=== PATIENT | female | born 1965 | race Caucasian/White ===

== ENCOUNTER → 2018-03-31 14:53 | Outpatient (CLI) | payer OTHER | END | disposition home or self-care (01) | LOC: D.MRI 14:53 | DX: M54.2 Cervicalgia (principal) ==

== ENCOUNTER 2018-09-15 07:30 | Day surgery (SDC) | payer OTHER ==
[2018-09-13 15:11] LABS: HEMOGLOBIN 12.8 g/dL (12-16); MCH 32.2 pg (26.0-34.0); MCHC 33.7 g/dL (31.0-37.0); MCV 95.5 fL (80.0-100.0); MEAN PLATELET VOLUME 10.3 fL (7.4-10.4); RBC 3.98 10x6/uL (4.00-5.40); RDW 12.9 % (11.5-14.5); WBC 4.8 10x3/uL (4.8-10.8)
[~2018-09-15] VITALS: Ht 157.5 cm; Wt 54.5 kg
--- NOTE | ~2018-09-15 | OP ---
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 PROCEDURE: Anterior cervical discectomy with removal of osteophytes and disc herniation at C5-C6, C5-C6 arthroplasty with Mobi-C artificial cervical disc. DESCRIPTION AND TECHNIQUE: After induction of general endotracheal anesthesia, the patient was positioned supine on the operating table with the cervical spine in a neutral position. After sterile prep and drape, the C5-C6 interspace was identified with fluoroscopic x-ray and a [place] dissector. Infiltration with 1:100,000 epinephrine with 1% lidocaine was infiltrated into the skin. A skin incision was carried out from the midline to the sternocleidomastoid muscle. The platysma was incised with a #15 blade. Using blunt and sharp dissection with Metzenbaum scissors, I proceeded in avascular plane medial to the carotid sheath. The C5-C6 interspace was identified with fluoroscopic x-ray and a spinal needle. Redmon distracting pins were placed in the bodies of C5-C6. A self-retaining retractor was placed deep to the longus colli muscles. The disc space was incised and the disc material was removed with suture rongeurs and curettes. The cartilaginous endplate was removed with a curette. Under microscope illumination, the posterior longitudinal ligament was removed with Cloward rongeurs. Osteophytes were drilled away posteriorly with Midas-Ramy drill under microscopic illumination. An appropriate size, Mobi-C was introduced in the disc space under fluoroscopic control. Good position of the hardware was confirmed with fluoroscopic x-ray. Meticulous hemostasis was maintained at the wound. The wound was irrigated with copious amounts of Ancef irrigant solution. The retractor was removed. The platysma was closed with interrupted 3-0 Vicryl suture. The subdermal layer was closed with interrupted 4-0 Vicryl suture. The skin was reapproximated with Steri-Strips and benzoin. A sterile dressing was applied to the wound. The patient was awakened in good condition, taken to recovery. All counts reported as correct. ESTIMATED BLOOD LOSS: Minimal. TRANSINT:[id number] Voice Confirmation ID: [id number] DOCUMENT ID: [id number] VISHNU BUSBY MD CC: [id number] DICTATION DATE: 09/28/181803 [employer]ITY INST[employer]ATION SALES TECHNICIAN: 09/28/188 [facility] 09/16/18 [place] [id number]
[~2018-09-15 07:30] MED LIST: ACETAMINOPHEN500 M1 PO; ESTRACE2 MG PO; NEURONTIN 300300 MG PO
[2018-09-15 08:42] VITALS: BP 111/45; BMI 22.0
[2018-09-15 14:56] VITALS: BP 126/66
[2018-09-15 18:30] VITALS: BP 126/66; Ht 157.5 cm; Wt 54.5 kg
--- NOTE | 2018-09-15 20:00 | NUR ---
PT SITTING UP IN BED WITHOUT DISTRESS, ALERT AND ORIENTED. STATES SHE IS HAVING SOME PAIN TO NECK, STATES IT FEELS MORE STIFF THAN PAINFUL. INCISION TO RIGHT ANTERIOR NECK CDI. GAVE MORPHINE ORDERED. PT STATES SHE DOES NOT LIKE TAKING HYDROCODONE. ASSISTED PT UP TO BATHROOM WITH MINIMAL ASSIST AND BACK TO BED. SCDS IN PLACE. AT BEDSIDE. DENIES OTHER NEEDS. CL IN REACH, WILL CTM
[2018-09-15 21:58] VITALS: BP 132/74
[2018-09-16 01:37] VITALS: BP 124/74
[2018-09-16 05:37] VITALS: BP 110/60
[2018-09-16] MEDS ORDERED: HYDROCODON-ACE1 EA10 PO (12:00)
[2018-09-16] MEDS ORDERED: ZANAFLEX4 MG PO (12:01)
[2018-09-16] MEDS ORDERED: PHENERGAN25 M1 PO (12:02)
--- NOTE | 2018-09-16 13:17 | NUR ---
IV THERAPY DC'ED WITH TIP INTACT. PROVIDED AN ICE PACK AND PAIN MEDICATIONS TO EASE THE PATIENTS TRIP HOME. FAMILY WILL HELP DRESS AND TAKE PATIENT HOME AND DOWNSTAIRS VIA WHEEL CHAIR
== END 2018-09-16 13:25 | disposition home or self-care (01) ==
LOC: D.OPS 07:30 → D.PAN 10:30 → D.OPS 10:30 → D.MS 14:41 → D.OPS 09-16 13:25
PROVIDERS: Anesthesiology; ATTEND Neurological Surgery
DX: M50.122 Cervical disc disorder at C5-C6 level with radiculopathy (principal); M53.80 Other specified dorsopathies, site unspecified; M54.12 Radiculopathy, cervical region